=== PATIENT | male | born 1990 | race Caucasian/White ===

== ENCOUNTER 2016-12-12 14:01 | Emergency (ER) | payer MEDICAID ==
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
[2016-12-12] MEDS ORDERED: ZOFRAN IV ONE (19:23)
[2016-12-12] MEDS ORDERED: MORPHINE IM ONE (19:23)
[2016-12-12] MEDS ORDERED: MORPHINE IV ONE (19:26)
[2016-12-12] MEDS ORDERED: NACL ONE (19:29)
[2016-12-12] MEDS ORDERED: NACL 0.9% 1000 ML 1,000 ML ONE (19:52)
[2016-12-12] MEDS ORDERED: NACL 0.9% 1000 ML 1,000 ML IV ONE (19:54)
[2016-12-12 20:01] LABS: Hematocrit 44.4 % (35.5-45.6); Mean Corpuscular HGB Conc 34 % (32-34); Mean Corpuscular Hemoglobin 31 pg (28-32); Mean Corpuscular Volume 92 fl (84-94); Platelet Count 177 K/mm3 (140-440); Red Blood Count 4.82 M/mm3 (3.65-5.03); Red Cell Distribution Width 12.4 % (13.2-15.2)
[2016-12-12 20:05] LABS: Basophils % (Auto) 0.5 % (0.0-1.8); Eosinophils % (Auto) 2.3 % (0.0-4.3)
[2016-12-12 20:09] LABS: Anion Gap 19 mmol/L; BUN/Creatinine Ratio 11.42; Blood Urea Nitrogen 8 mg/dL (9-20); Calcium 9.4 mg/dL (8.4-10.2); Carbon Dioxide 28 mmol/L (22-30); Chloride 99.5 mmol/L (98-107); Glucose 96 mg/dL (75-100); Potassium 4.1 mmol/L (3.6-5.0); Sodium 142 mmol/L (137-145)
[2016-12-12 21:08] LABS: Bilirubin,Urine NEG (Negative); Blood,Urine NEG (Negative); Ketones,Urine NEG (Negative); Leukocyte Esterase,Urine NEG (Negative); Nitrite,Urine NEG (Negative); Protein,Urine <15 mg/dL mg/dL (Negative); RBC,Urine < 1.0 /HPF (0.0-6.0); Urobilinogen,Urine < 2.0 mg/dL (<2.0); WBC,Urine < 1.0 /HPF (0.0-6.0)
--- NOTE | 2016-12-12 21:12 | Cat Scan Report ---
FINAL REPORT EXAM: CT NECK W CON HISTORY: s/p tonsilectomy and excision of mass left TECHNIQUE: CT neck with IV contrast PRIORS: None. FINDINGS: There is metallic density focus seen right temporal region which appears chronic. No evidence of for pharyngeal tonsillar enlargement no evidence of enlargement of the adenoids. Mildly prominent internal jugular chain lymph nodes noted likely reactive. No focal abscess collection identified The major salivary glands are within normal limits No abnormal mass or cyst is seen. The cervical spine is within normal limits. No evidence of significant anterior osteophyte. Proximal esophagus does not appear dilated. No focal inflammatory change seen. Major vascular structures are unremarkable. Thyroid is not enlarged. IMPRESSION: Negative CT soft tissue neck
[2016-12-12 22:17] VITALS: BP 111/55
== END 2016-12-12 22:55 | disposition home or self-care (01) ==
LOC: ED 14:01
DX: K12.2 Cellulitis and abscess of mouth (principal); J02.9 Acute pharyngitis, unspecified; F17.200 Nicotine dependence, unspecified, uncomplicated
CPT/HCPCS: 36415; 70491; 80048; 81001; 82140; 85025; 86140; 87040; 87116; 87430; 96361; 96374; 96375; 99284; J2270; J2405; J7030; Q9967